=== PATIENT | male | born 1950 | race Caucasian/White ===

== ENCOUNTER 2019-02-18 10:45 | Day surgery (SDC) | payer OTHER ==
[~2019-02-18] VITALS: Ht 177.8 cm; Wt 103.5 kg
[~2019-02-18 10:45] MED LIST: Advil200 M1; CLOBET30L; ESCI20; METF500; OMEPRAZOLE20 MG; TAMS.4ER
== END 2019-02-18 12:41 | disposition home or self-care (01) ==
LOC: ORSCSDS 10:45
PROVIDERS: Student in an Organized Health Care Education/Training Program
PROC: 0DBH8ZX Excision of Cecum, Via Natural or Artificial Opening Endoscopic, Diagnostic (ICD-10-PCS; principal; 2019-02-18 12:15)
DX: Z12.11 Encounter for screening for malignant neoplasm of colon (principal); D12.0 Benign neoplasm of cecum; I10 Essential (primary) hypertension; G47.33 Obstructive sleep apnea (adult) (pediatric); K21.9 Gastro-esophageal reflux disease without esophagitis; F17.210 Nicotine dependence, cigarettes, uncomplicated; E11.9 Type 2 diabetes mellitus without complications; Z79.84 Long term (current) use of oral hypoglycemic drugs; B19.20 Unspecified viral hepatitis C without hepatic coma; Z79.899 Other long term (current) drug therapy
CPT/HCPCS: 82947; 88305; J2704; J7120

== ENCOUNTER 2024-02-20 11:29 | Day surgery (SDC) | payer OTHER ==
[~2024-02-20] VITALS: Ht 177.8 cm; Wt 103.5 kg
[~2024-02-20 11:29] MED LIST changes: +Balanced Salt Epinephrine Irrigation Solution 500 mL IR SCH; +Lidocaine HCl/Pf 1% 5 ML VIAL XX SCH; +Moxifloxacin HCL 0.5 MG/0.1 ML 0.4MLSYR LEFTEYE SCH; +PHENYLEPHRINE\\TROPICAMIDE\\TETRACAINE OPHTHALMIC DILATING SOLN LEFTEYE PRN; +Povidone-Iodine 450 DROP/30 ML Solution LEFTEYE SCH; +Povidone-Iodine 450 DROP/30 ML Solution ONE; +Tetracaine HCl/Pf 0.5% Opth Soln 4 ml ONE
[2024-02-20] MEDS ORDERED: ESCI10 PO (11:53)
--- NOTE | 2024-02-20 12:04 | NUR ---
02/20/24 1204 Adam Mauro CALL LIGHT WITHIN REACH. TETRACATING IN LEFT EYE AT 1153 AND PLEDGETT IN AT 1154
[2024-02-20] MEDS ORDERED: Midazolam HCl 1MG / ML 2ML Vial ONE (12:16)
[2024-02-20 13:54] VITALS: BP 165/85
--- NOTE | 2024-02-20 14:02 | NUR ---
02/20/24 1402 Chiara Chávez CONSULTED REGARDING PT ABNORMAL EKG THAT WAS TAKEN IN PREOP. ORDERED A 12 LEAD EKG. 12 LEAD EKG SHOWED PT IN A-FIB. PT STATED "I'M NOT FEELING ANY DIFFERENT THAN NORMAL". DR. MURDOCK RECOMMENDS PT TO FOLLOW UP WITH HIS PCP ABOUT NEW ARRHYTHMIA. THIS RN SPOKE TO PT REGARDING THIS MATTER WELL HAS PT DAUGHTER WHOM HE LIVES WITH. PT WAS SENT HOME WITH A COPY OF HIS EKG TO GIVE TO HIS PCP. PT AND PT DAUGHTER CONFIRMS THEY WILL FOLLOW UP WITH PCP.
== END 2024-02-20 13:47 | disposition home or self-care (01) ==
LOC: ORSCSDS 11:29
PROVIDERS: Student in an Organized Health Care Education/Training Program
PROC: 08RK3JZ Replacement of Left Lens with Synthetic Substitute, Percutaneous Approach (ICD-10-PCS; principal; 2024-02-20 13:00)
DX: E11.36 Type 2 diabetes mellitus with diabetic cataract (principal); H25.813 Combined forms of age-related cataract, bilateral; H52.202 Unspecified astigmatism, left eye; B19.20 Unspecified viral hepatitis C without hepatic coma; G47.33 Obstructive sleep apnea (adult) (pediatric); I10 Essential (primary) hypertension; H02.402 Unspecified ptosis of left eyelid; H53.2 Diplopia; I48.91 Unspecified atrial fibrillation; K21.9 Gastro-esophageal reflux disease without esophagitis; E66.9 Obesity, unspecified; Z68.32 Body mass index [BMI] 32.0-32.9, adult; Z79.84 Long term (current) use of oral hypoglycemic drugs; Z79.899 Other long term (current) drug therapy
CPT/HCPCS: 82947; 93005; 93010; J2250; V2632